=== PATIENT | female | born 1990 | race African-American/Black ===

== ENCOUNTER 2017-01-29 15:16 | Inpatient (IN) | payer OTHER ==
[2017-01-29 16:46] VITALS: BMI 29.4
[2017-01-29] MEDS ORDERED: OXYTOCIN IN NS 167 ML IV PRN (17:06)
[2017-01-29] MEDS: LACTATED RINGERS 1,000 ML IV PRN ×2 (17:10→17:53)
[2017-01-29] MEDS ORDERED: LIDOCAINE Viscous 2% 15 ML UDCUP ONE (17:17)
[2017-01-29] MEDS ORDERED: OXYTOCIN 10 UNITS/ML VIAL ONE (17:17)
[2017-01-29] MEDS ORDERED: LIDOCAINE 1% (PRES FREE) 30 ML VIAL ONE (17:17)
[2017-01-29] MEDS ORDERED: MINERAL OIL 25 ML BOT ONE (17:17)
[2017-01-29] MEDS ORDERED: FENTANYL/ROPIVACAINE EPIDURAL 250 ML EP ONE (17:18)
[2017-01-29] MEDS ORDERED: BUPIVACAINE 0.25% (PRES FREE) 30 ML VIAL ONE (17:28)
[2017-01-29] MEDS ORDERED: EPIDURAL PROCEDURE TRAY ONE (17:28)
[2017-01-29] MEDS ORDERED: LACTATED RINGERS 500 ML IV PRN (17:32)
[2017-01-29] MEDS ORDERED: NALOXONE HCL 0.4 MG/ML VIAL IV PRN (17:32)
[2017-01-29] MEDS ORDERED: DIPHENHYDRAMINE HCL 50 MG/1 ML VIAL IV PRN (17:32)
[2017-01-29] MEDS ORDERED: METOCLOPRAMIDE HCL 5 MG/ML 2ML VIAL IV PRN (17:32)
[2017-01-29] MEDS ORDERED: NALBUPHINE HCL 20 MG/ML AMP IV PRN (17:32)
[2017-01-29] MEDS ORDERED: ONDANSETRON 4 MG/2ML 2 ML VIAL IV PRN (17:32)
[2017-01-29] MEDS ORDERED: SODIUM CHLORIDE 0.9% 500 ML IV PRN (17:32)
[2017-01-29] MEDS ORDERED: EPHEDRINE SULFATE 50 MG/ML 1ML VIAL IV PRN (17:32)
[2017-01-29] MEDS ORDERED: FENTANYL/ROPIVACAINE EPIDURAL 250 ML EP SCH (17:32)
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
[2017-01-29 17:48] LABS: HEMOGLOBIN 12.6 gm/l (12.0-16.0); MEAN CELL VOLUME 85.6 fl (81.0-99.0); MEAN CORPUSCULAR HEMOGLOBIN 28.4 pg (27.0-31.0); MEAN CORPUSCULAR HGB CONC 33.2 g/dl (33.0-37.0); RED CELL DISTRIBUTION WIDTH 12.3 % (11.5-14.5)
[2017-01-29] MEDS ORDERED: MAGNESIUM HYDROXIDE 30 ML UDCUP PO PRN (19:53)
[2017-01-29] MEDS ORDERED: DIPHTH,PERTUSS(ACELL),TET VAC 0.5 ML VIAL IM V ONE (19:53)
[2017-01-29] MEDS ORDERED: CALCIUM CARBONATE 500 MG TAB.CHEW PO PRN (19:53)
[2017-01-29] MEDS ORDERED: LANOLIN 50 APPLIC/7G TUBE TP PRN (19:53)
[2017-01-29] MEDS ORDERED: BENZOCAINE/MENTHOL 60 APPLIC/BOT TP PRN (19:53)
[2017-01-29] MEDS ORDERED: ACETAMINOPHEN 325 MG TABLET PO PRN (19:53)
--- NOTE | 2017-01-29 19:54 | PCMDEL ---
Delivery Note - Labor 1st stage (hr/min):: 1hr 42mins 2nd stage (hr/min):: 10 mins 3rd stage (hr/min):: 7 mins Total (hr/min):: 1hr 52 mins Pushed (hr/min):: 4 mins - Delivery Delivery (Date): 01/29/17 Delivery (Time): 19:00 Gender: Female Presentation: Cephalic Position: OA (to LOBO) Umbilical Cord: 3 Vessel Delayed Cord Clamping:: > 3 min 1 Minute Total: 8 (2 off for color) 5 Minute Total: 9 Placenta:: grossly intactjean EBL:: 50mL Perineum:: intact Suture:: none Anesthesia/Meds:: epidural Length ROM:: 4 hours 0 mins Comments:: Pre-labor ROM at 1500 today for clear fluid with onset of contractions within the hour. Crystal presented to [facility], ruptured, with SVE of 4.5cm/80%/-2. SHe received an epidural for pain management in labor. She was supported by her mother, Ty. FHTs remained Category 1 throught first stage. Crystal was noted to have complete cervical dilation at 1850 after noting bloody show and increased vaginal pressure. Crystal pushed with the next two contractions and delivered a vigorous female infant, OA to LOBO over an intact perineum. Apgars 8 & 9. delivered direct to maternal abdomen and skin to skin initiated. Delayed cord clamping. Cord was cut by the 's grandfather. With small gush of blood, placenta delivered grossly intact, Shultze position. 3 vessel cord. Fundus immediately firm, midline, below the umbilicus. AMTSL initiated after delivery of the placenta. Vaginal vault and perineum inspected and found to be intact. Post delivery count correct. QBL 50mL Mother and in good condition and bonding well. OB on-call notified of patient's desire for BTL in the AM.
[2017-01-29 20:32] LABS: AMPHETAMINES/METHAMPHETAMINES NEGATIVE (NEGATIVE); COCAINE NEGATIVE (NEGATIVE); MARIJUANA NEGATIVE (NEGATIVE); METHADONE NEGATIVE (NEGATIVE); OPIATES NEGATIVE (NEGATIVE); TRICYCLIC ANTIDEPRESSANTS NEGATIVE (NEGATIVE)
[2017-01-29] MEDS: LACTATED RINGERS 1,000 ML IV SCH (21:52)
[2017-01-30] MEDS: IBUPROFEN 800 MG TABLET PO PRN ×3 (02:52→17:08)
[2017-01-30] MEDS: DOCUSATE SODIUM 100 MG CAPSULE PO SCH (09:08)
[2017-01-30] MEDS: HYDROCODONE/ACETAMINOPHEN 5/325MG TABLET PO PRN ×2 (15:01→20:22)
--- NOTE | 2017-01-30 17:40 | PDOC44 ---
- Subjective Day: 1 ( recovery) Reports , Reports Lochia Light, Reports Tolerating Regular Diet - Objective Temp Pulse Resp BP Pulse Ox 98.2 F 90 18 122/74 01/30/17 14:23 01/30/17 14:23 01/30/17 14:23 01/30/17 14:23 Lab Results 01/29/17 17:10 WBC 7.7 RBC 4.44 Hgb 12.6 Hct 38.0 Plt Count 215 Current Medications Generic Name Dose Route Start Last Admin Trade Name Freq PRN Reason Stop Dose Admin Acetaminophen 325 - 650 mg 01/29/17 19:53 Tylenol PO Q4H PRN Pain (Mild) Acetaminophen/Hydrocodone Bitart 1 - 2 tab 01/30/17 14:53 01/30/17 15:01 [place] 5/325 PO 1 tab Q4H PRN Administration Pain Benzocaine/Menthol 1 applic 01/29/17 19:53 Dermoplast TP PRN PRN Patient Comfort Calcium Carbonate/Glycine 500 - 1,000 mg 01/29/17 19:53 Tums PO BID PRN Indigestion Docusate Sodium 100 mg 01/30/17 09:00 01/30/17 09:08 Colace PO 100 mg DAILY REED Administration Emollient Ointment 1 applic 01/29/17 19:53 [id number] TP PRN PRN sore nipples Ibuprofen 800 mg 01/29/17 19:53 01/30/17 17:08 Motrin PO 800 mg Q6H PRN Administration Pain (Mild) Magnesium Hydroxide 30 ml 01/29/17 19:53 Milk Of Magnesia PO BEDTIME PRN Constipation Sodium Chloride 10 ml 01/29/17 19:53 01/29/17 20:30 Normal Saline 10ml Flush IV 10 ml PRN PRN Administration IV Flush Sodium Chloride 10 ml 01/30/17 01:00 01/30/17 04:55 Normal Saline 10ml Flush IV 10 ml Q8HR REED Administration - Physical Exam General: Afebrile Psych/Mental Status: Mood/Affect Appropriate, Judgment/Insight Intact, Bonding Well Neurological: Grossly Intact, Alert, Oriented x 4, Normal Gait, Normal Speech Lungs: Clear to Auscultation Bilaterally Cardiovascular: Regular Rate and Rhythm Breast: Soft, Skin intact, Nipples Intact Fundus: Firm, Midline, Below Umbilicus Genitourinary: Normal Female Genitalia Rectal Exam: Deferred Extremities: Full ROM Skin: Normal Color, Warm, Dry, Intact - Problems:Assessment/Plan (1) (normal spontaneous vaginal delivery) Status: AcuteAssessment/Plan: A: day #1 s/p exclusively BTL tomorrow P: Reviewed normal pain control, recommended schedule of alternating ibuprofen and norco BTL scheduled tomorrow will be NPO at midnight. Disposition: Stable
--- NOTE | 2017-01-30 21:03 | PDOC36 ---
Provider Note Subject: Pre-op note Note: Fco is a 26yo G6 para 1324, who is very definite that she wants to have permanent contraception by tubal ligation. She has been scheduled for tomorrow morning. Pt has 3 boys and now her girl. She signed the federal consent form on 12/06/16. Risks/complications were briefly reviewed with her tonight. She says she would prefer to be asleep for the surgery. Exam: Pt is sitting up, . Her bleeding has been minimal since the . Abd soft, +BS, non tender. no prior abd surgery scars. Fundus is firm, mobile, deep, 2-3cm below umbilicus. Imp: Ppartum BTL tomorrow at 7am Plan: Routine pre-op care.
[2017-01-31] MEDS: LACTATED RINGERS 1,000 ML IV SCH ×4 (00:37→21:10)
[2017-01-31] MEDS: IBUPROFEN 800 MG TABLET PO PRN ×2 (01:02→09:46)
[2017-01-31] MEDS: HYDROCODONE/ACETAMINOPHEN 5/325MG TABLET PO PRN (01:02)
[2017-01-31 06:12] LABS: HEMATOCRIT 32.2 % (37.0-47.0); HEMOGLOBIN 10.4 gm/l (12.0-16.0); MEAN CELL VOLUME 88.7 fl (81.0-99.0); MEAN CORPUSCULAR HEMOGLOBIN 28.7 pg (27.0-31.0); MEAN CORPUSCULAR HGB CONC 32.3 g/dl (33.0-37.0); RED CELL DISTRIBUTION WIDTH 12.3 % (11.5-14.5)
[2017-01-31] MEDS ORDERED: FENTANYL 100 MCG/2 ML VIAL ONE (06:51)
[2017-01-31] MEDS ORDERED: PROPOFOL 20 ML IV ONE (06:51)
[2017-01-31] MEDS ORDERED: MIDAZOLAM HCL 1 MG/ML 2ML VIAL ONE (06:51)
[2017-01-31] MEDS ORDERED: LIDOCAINE 2% (PRES FREE) 5 ML VIAL ONE (06:51)
[2017-01-31] MEDS ORDERED: CITRIC ACID/SODIUM CITRATE 15 ML UDCUP PO ONE (07:12)
[2017-01-31] MEDS ORDERED: FENTANYL 100 MCG/2 ML VIAL IV PRN (07:44)
[2017-01-31] MEDS ORDERED: ATROPINE SULFATE 0.4 MG/1 ML VIAL IV PRN (07:44)
[2017-01-31] MEDS ORDERED: PROMETHAZINE HCL 25 MG/ML VIAL IM PRN (07:44)
[2017-01-31] MEDS ORDERED: NALOXONE HCL 0.4 MG/ML VIAL IV PRN (07:44)
[2017-01-31] MEDS ORDERED: HYDROMORPHONE HCL 1 MG/ML SYRINGE IV PRN (07:44)
[2017-01-31] MEDS ORDERED: ONDANSETRON 4 MG/2ML 2 ML VIAL IV PRN (07:44)
[2017-01-31] MEDS ORDERED: FENTANYL 250 MCG/5 ML AMP ONE (07:51)
[2017-01-31] MEDS ORDERED: DEXAMETHASONE SOD PHOS 4 MG/1 ML VIAL ONE (07:58)
[2017-01-31] MEDS ORDERED: DIPHENHYDRAMINE HCL 50 MG/1 ML VIAL ONE (07:58)
[2017-01-31] MEDS ORDERED: KETOROLAC TROMETHAMINE 30 MG/ML 1 ML VIAL ONE (07:59)
--- NOTE | 2017-01-31 08:20 | PCMBPN ---
Brief Post Op Note: Date of Procedure: 01/31/17 Start Time: Preoperative Diagnosis: 1. multiparity Postoperative Diagnosis: 1. multiparity Procedure: post tubal ligation by [place] technique Surgeon: Jeremy Jo Assist:ms. aura tee Anesthesia: mr rich, spinal/general Findings: uterine fundus at 20 weeks size, both fallopian tubes normal Condition: stable Complications: none IV Fluids: mLs of LR Urine Output: mLs Estimated Blood Loss: less than 5 mLs Tourniquet Time: N/A Specimens: portion of right and left fallopian tubes Implants: Drains: N/A closure nina patient tolerated procedure well and was returned to recovery room in stable condition.
[2017-01-31] MEDS ORDERED: DOCUSATE SODIUM 100 MG CAPSULE PO PRN (08:21)
[2017-01-31] MEDS ORDERED: MENTHOL/CETYLPYRD 1 EACH LOZENGE PO PRN (08:21)
[2017-01-31] MEDS ORDERED: MAG HYDROX/AL HYDROX/SIMETH 30 ML UDCUP PO PRN (08:21)
[2017-01-31] MEDS ORDERED: BLISTEX LIPSTICK 1 EACH TP PRN (08:21)
[2017-01-31] MEDS ORDERED: MAGNESIUM HYDROXIDE/AL HYDROX 30 ML UDCUP PO PRN (08:21)
[2017-01-31] MEDS ORDERED: ACETAMINOPHEN 325 MG TABLET PO PRN (08:21)
[2017-01-31] MEDS: OXYCODONE/ACETAMINOPHEN 5/325 MG TABLET PO PRN ×3 (09:46→20:12)
--- NOTE | 2017-01-31 11:22 | OP ---
Fco Solomon : 1990 NAME OF OPERATION: tubal ligation by Ros[place] technique. PREOPERATIVE DIAGNOSIS: Multiparity. POSTOPERATIVE DIAGNOSIS: Multiparity. ROASTER HELPER: Dr. Jeremy Renae. BUSINESS SERVICES MANAGER: Ms. Mariama Ely. ANESTHESIA: Mr. Kitchen, Spinal which was not successful followed by general anesthesia. DESCRIPTION OF PROCEDURE: Dictation begins with patient in the supine position. The abdomen had been prepared with Chloraprep and draped in the usual manner for subumbilical incision. After a timeout was performed the skin was tested, but patient did feel pain and for this reason the spinal anesthesia was converted to general anesthesia. Under general anesthesia two Allis clamps were used to grasp the skin lateral to the umbilicus and a subumbilical incision was made with the knife. The knife was then used to dissect down the subcutaneous tissue to the rectus abdominis fascia which was nicked with the knife and carried laterally with Metzenbaum scissors. The peritoneum was then identified, grasped with Allis clamps, and dissected using the knife. Findings included the uterine fundus 20 weeks size and both Fallopian tubes appeared normal. First the right Fallopian tube was identified down to its fimbriated portion grasping it in the mid portion with a Harts clamp and the skin had been retracted with narrow retractors. With the right Fallopian tube identified down to its fimbriated portion a suture of 3-0 Plain was placed through the mesosalpinx and around the tube creating a knuckle of tube and then held with a Barby clamp. A free tie of the same material was placed beneath the first and then the knuckle of tube was dissected away. The edges were bovied resulting in complete hemostasis. The same procedure was performed on the opposite tube making sure to identify down to its fimbriated portion. This tube after ligation was cauterized resulting in complete hemostasis. Now with complete hemostasis all the instruments were removed and with sponge and instrument count reported as correct and complete hemostasis two Allis clamps were used to grasp the peritoneum and rectus abdominis fascia together in a continuous suture of 0 Vicryl was used to close the fascia and the peritoneum in a continuous manner locking the first stitch. Subcutaneous bleeding points were bovied prior to closure of skin and the skin was closed with nina. Estimated blood loss was less than 5 mL and patient tolerated procedure well and was returned to recovery room in stable condition. Again sponge and instrument count was reported as correct at closure. FINAL DIAGNOSIS: Multiparity. JOB:
--- NOTE | 2017-01-31 17:37 | PDOC44 ---
- Subjective Reports Pain Tolerable, Reports - Objective Temp Pulse Resp BP Pulse Ox 97.8 F 88 16 138/103 97 01/31/17 14:37 01/31/17 14:37 01/31/17 14:37 01/31/17 14:37 01/31/17 14:37 Lab Results 01/31/17 05:30 WBC 7.8 RBC 3.63 L Hgb 10.4 L D Hct 32.2 L Plt Count 174 01/31/17 05:30 MCHC 32.3 L Current Medications Generic Name Dose Route Start Last Admin Trade Name Freq PRN Reason Stop Dose Admin Acetaminophen 325 - 650 mg 01/29/17 19:53 Tylenol PO Q4H PRN Pain (Mild) Acetaminophen 325 - 650 mg 01/31/17 08:21 Tylenol PO Q4H PRN Pain or Temperature > 100.5 F Acetaminophen/Hydrocodone Bitart 1 - 2 tab 01/30/17 14:53 01/31/17 01:02 [place] 5/325 PO 2 tab Q4H PRN Administration Pain Al Hydroxide/Mg Hydroxide 30 ml 01/31/17 08:21 Maalox Plus PO Q4H PRN Bloating,Gas,Abd Distension Al Hydroxide/Mg Hydroxide 30 ml 01/31/17 08:21 Maalox PO Q4H PRN Dyspepsia Atropine Sulfate 0.2 mg 01/31/17 07:44 Atropine Sulfate IV X1 PRN HR <50/minute and unstable BP Benzocaine/Menthol 1 applic 01/29/17 19:53 Dermoplast TP PRN PRN Patient Comfort Benzocaine/Menthol 1 each 01/31/17 08:21 Cepacol PO PRN PRN Cough Calcium Carbonate/Glycine 500 - 1,000 mg 01/29/17 19:53 Tums PO BID PRN Indigestion Docusate Sodium 100 mg 01/30/17 09:00 01/30/17 09:08 Colace PO 100 mg DAILY REED Administration Docusate Sodium 100 mg 01/31/17 08:21 Colace PO BID PRN Constipation Emollient Ointment 1 applic 01/29/17 19:53 [id number] TP PRN PRN sore nipples Fentanyl Citrate 50 mcg 01/31/17 07:44 Fentanyl IV Q5M PRN Pain Hydromorphone HCl 0.5 mg 01/31/17 07:44 01/31/17 13:12 Dilaudid IV 0.5 mg Q5M PRN Administration Pain Lactated Ringer's 1,000 mls @ 100 mls/hr 01/31/17 07:45 Lactated Ringers IV .Q10H REED Ibuprofen 800 mg 01/29/17 19:53 01/31/17 09:46 Motrin PO 800 mg Q6H PRN Administration Pain (Mild) Magnesium Hydroxide 30 ml 01/29/17 19:53 Milk Of Magnesia PO BEDTIME PRN Constipation Naloxone HCl 0.2 mg 01/31/17 07:44 Narcan IV X1 PRN Respiratory Rate <8/minute Ondansetron HCl 4 mg 01/31/17 07:44 Zofran IV X1 PRN Nausea/Vomiting Oxycodone/Acetaminophen 1 - 2 tab 01/31/17 08:21 01/31/17 14:35 Percocet 5/325 PO 2 tab Q4H PRN Administration Pain Petrolatum/Paraffin/Mineral Oil 1 each 01/31/17 08:21 Blistex TP PRN PRN Dry and/or chapped lips Promethazine HCl 12.5 - 25 mg 01/31/17 07:44 Phenergan IM X1 PRN Nausea/Vomiting Sodium Chloride 10 ml 01/29/17 19:53 01/31/17 06:20 Normal Saline 10ml Flush IV 10 ml PRN PRN Administration IV Flush Sodium Chloride 10 ml 01/30/17 01:00 01/31/17 00:36 Normal Saline 10ml Flush IV 10 ml Q8HR [facility] Administration - Physical Exam General: Afebrile Psych/Mental Status: Mood/Affect Appropriate, Bonding Well Breast: Soft, Skin intact, Nipples Intact Fundus: Firm, Midline, Below Umbilicus Genitourinary: Normal Female Genitalia Rectal Exam: Deferred Skin: Normal Color, Warm, Dry Wound PROGRAM COUNSELOR: Dressing in Place, Dressing Clean/Dry/Intact - Problems:Assessment/Plan (1) care and examination of lactating mother Status: Acute (2) tubal ligation planned Status: Acute Disposition: Stable, Anticipate DC Home Tomorrow
[2017-01-31] MEDS: DOCUSATE SODIUM 100 MG CAPSULE PO SCH (21:08)
[2017-02-01] MEDS: IBUPROFEN 800 MG TABLET PO PRN ×2 (01:18→09:47)
[2017-02-01] MEDS: LACTATED RINGERS 1,000 ML IV SCH ×3 (04:50→08:53)
[2017-02-01 06:03] LABS: HEMATOCRIT 30.8 % (37.0-47.0); HEMOGLOBIN 10.1 gm/l (12.0-16.0)
--- NOTE | 2017-02-01 07:37 | PDOC36 ---
Provider Note Subject: postop BTL Note: No c/o this AM. Abdomen: soft, nontender, nondistended Incision: clean, dry, intact. dressing removed. nina are noted, well approximated. a/p) OK for discharge today f/u 1w with Dr. Jo for nina removal rx percocet Vital Signs - 24 hr 01/31/17 01/31/17 01/31/17 09:15 09:45 10:15 Temperature 97.9 F Pulse Rate 79 81 78 Respiratory 16 16 16 Rate Blood Pressure 138/97 146/102 136/92 O2 Saturation 98 98 98 by Pulse Oximetry 01/31/17 01/31/17 01/31/17 10:45 14:37 18:25 Temperature 98.8 F 97.8 F 98.1 F Pulse Rate 86 88 105 Respiratory 16 16 18 Rate Blood Pressure 132/98 138/103 139/81 O2 Saturation 98 97 by Pulse Oximetry 01/31/17 02/01/17 21:45 02:35 Temperature 98.8 F 99.7 F Pulse Rate 77 75 Respiratory 16 16 Rate Blood Pressure 137/98 133/89 O2 Saturation by Pulse Oximetry Laboratory WBC 7.8 K/mm3 (4.0-10.5) 01/31/17 05:30 RBC 3.63 M/mm3 (4.20-5.40) L 01/31/17 05:30 Hgb 10.1 gm/l (12.0-16.0) L 02/01/17 05:30 Hct 30.8 % (37.0-47.0) L 02/01/17 05:30 MCV 88.7 fl (81.0-99.0) 01/31/17 05:30 MCH 28.7 pg (27.0-31.0) 01/31/17 05:30 MCHC 32.3 g/dl (33.0-37.0) L 01/31/17 05:30 RDW 12.3 % (11.5-14.5) 01/31/17 05:30 Plt Count 174 K/mm3 (130-400) 01/31/17 05:30 Urine Opiates Screen Negative (NEGATIVE) 01/29/17 18:20 Urine Methadone Screen Negative (NEGATIVE) 01/29/17 18:20 Ur Barbiturates Screen Negative (NEGATIVE) 01/29/17 18:20 Ur Tricyclics Screen Negative (NEGATIVE) 01/29/17 18:20 U Amphetamin/Meth Scrn Negative (NEGATIVE) 01/29/17 18:20 U Benzodiazepines Scrn Negative (NEGATIVE) 01/29/17 18:20 Urine Cocaine Negative (NEGATIVE) 01/29/17 18:20 U Marijuana (THC) Screen Negative (NEGATIVE) 01/29/17 18:20 Syphilis IgG/IgM Ab Non-reactive (()) 01/29/17 17:00
[2017-02-01 08:45] VITALS: BP 137/93
[2017-02-01] MEDS: DOCUSATE SODIUM 100 MG CAPSULE PO SCH (09:46)
[2017-02-01 10:20] LABS: HEMATOCRIT 30.9 % (37.0-47.0); HEMOGLOBIN 9.9 gm/l (12.0-16.0); MEAN CELL VOLUME 88.3 fl (81.0-99.0); MEAN CORPUSCULAR HEMOGLOBIN 28.3 pg (27.0-31.0); RED CELL DISTRIBUTION WIDTH 12.3 % (11.5-14.5)
[2017-02-01 10:23] LABS: ALB/GLOB RATIO 0.9 (>1.0); CALCIUM 8.6 mg/dL (8.6-10.3)
--- NOTE | 2017-02-01 11:51 | PDOC39B ---
Hospital Course: ADMIT DATE: 01/29/17 DISCHARGE DATE: 02/01/17 ADMISSION DIAGNOSES: Uterine contractions PROCEDURES: & BTL HISTORY OF PRESENT ILLNESS: 26 year old G6 T0 L3 at 38 weeks 5 days presenting with uterine contractions. of baby girl. Had a BTL. Elevated BPs . HOSPITAL COURSE: By day of discharge the patient is ambulating, eating, voiding , and passing flatus without difficulty. Pain is controlled and lochia is appropriate. She is without difficulty. She denies s/s preeclampsia (RABAGO, visual changes, edema, RUQ pain). She has good social support from her mother. She requests a breastpump. She also reports an ongoing foot infection x1mo on both feet. She has been washing them at home with hydrogen peroxide and at the hospital with alcohol swabs. - Physical Exam Vital Signs: Temp Pulse Resp BP Pulse Ox 98.9 F 80 18 137/93 97 02/01/17 08:44 02/01/17 08:44 02/01/17 08:44 02/01/17 08:44 01/31/17 14:37 General: Afebrile Psych/Mental Status: Mood/Affect Appropriate, Judgment/Insight Intact, Bonding Well Lungs: Clear to Auscultation Bilaterally Cardiovascular: Regular Rate and Rhythm Breast: Soft, Skin intact, Nipples Intact Fundus: Firm, Midline, Below Umbilicus Genitourinary: Normal Female Genitalia Lochia: Light Extremities: Full ROM Skin: Other (Left foot-tinea pedis on underside of 3 smaller toes. Right foot- tinea pedis on underside of 2 smaller toes. Skin is cracked, no bleeding, appears wet. Pt has both covered with gauze. Gauze has some yellow exudate.) Wound: Dressing in Place (From BTL-not examined, as MD already examined pt this morning) - Discharge Diagnosis (1) care and examination of lactating mother Status: AcuteAssessment/Plan: A: Day 3 without difficulty Lochia stable Tinea pedis (see separate note) Elevated BPs -labs pending S/p BTL P: Education: handout given and reviewed. Warning signs and when to call/seek care discussed. Rx: breast pump, ibuprofen, colace given : encourage on-demand feeds, follow baby's feeding cues, relatch when baby is on shallow Social: has good support from family Contraception: BTL Follow-up: 1 week with OB for staple removal and CNMs in 2 weeks for routine PP visit (2) Tinea pedis Status: AcuteAssessment/Plan: A: Tinea pedis on both feet No signs of significant infection P: Rx for topcial clotrimazole given Instructions for foot care given in discharge instructions Pt to call if infection gets worse Encouraged to keep skin open to room air Will follow-up at 2-wk visit for healing progress and refer to primary care as needed (3) Elevated blood pressure reading Status: AcuteAssessment/Plan: A: Multiple elevated BPs , all <160/110 Asymptomatic for PIH PIH labs pending P: Reviewed PIH warning signs to call with (RABAGO, visual changes, edema, RUQ pain) Labs ordered and pending Will follow-up on BP at 1-week BTL visit and at routine visits. - Discharge Plan Condition: Stable Disposition: Home Additional Instructions: Congratulations on the of your baby! You have a 1-week post-tubal ligation visit with Dr. Jo on 02/08/17 at 2pm in [place]. You have a 2- week follow-up visit with the midwives on 02/12/17 at 2:40pm in [place]. If you have any questions or concerns, or if you need to reschedule, please call the clinic at [phone]. Call the clinic if you experience severe headache, new blurry vision or visual changes, sudden swelling, or pain under your ribs. For your foot infection (from UpToDate): Here are some other general tips on how to prevent fungal infections: -Do not share unwashed clothes, sports gear, or towels with other people -Always wear slippers or sandals when at the gym, pool, or other public areas. That includes public showers. -Wash with soap and shampoo after sports or exercise -Change your socks and underwear at least once a day -Keep your skin clean and dry. Always dry yourself well after swimming or showering. To improve comfort and reduce the chances of repeat infection, it is a good idea to use antifungal foot powders, both on the feet and in the shoes, and to wear open shoes when feasible, at least while the feet heal. Midwifery 'After the ' handout given to patient. Prescriptions: Docusate Sodium [COLACE 100 MG CAPSULE (F)] 100 mg PO DAILY PRN #14 cap PRN Reason: Constipation Ibuprofen [Motrin] 1 tab PO Q6H PRN #30 tablet PRN Reason: Pain Clotrimazole 1% Top Cream [LOTRIMIN 1% CREAM ([facility])] 1 applic TP BID #1 tube Oxycodone HCl/Acetaminophen [PERCOCET 5/325 MG TABLET ([facility])] 1 - 2 tab PO Q4H PRN #10 tab PRN Reason: Pain Follow-Up: Jeremy Jo MD [Staff Physician] - In 7-10 days (for nina removal)
[2017-02-01 13:03] LABS: CREATININE,RANDOM URINE 31 mg/dL
--- NOTE | 2017-02-07 14:20 | SURGPATH ---
[facility] [address] [place] [id number] Patient Name: SKYLAR RAMOS I. MR#: [id number] : 1990 Gender: F Specimen #: [id number] Collected: 01/31/2017 Received: 02/01/2017 Reported: 02/04/2017 Submitting Phys: JASON ROWAN I Copy To Phys: RONAL MARTINEZ [facility] Clinical History / Pre-Operative Diagnosis: DESIRE FOR STERILIZATION Specimen Source / Surgical Procedure Performed: BILATERAL FALLOPIAN TUBE SEGMENTS (STITCH ON RIGHT) Interpretation: FALLOPIAN TUBES, RIGHT AND LEFT, TUBAL LIGATION: - COMPLETE CROSS SECTIONS OF RIGHT AND LEFT FALLOPIAN TUBES Electronically Signed Out Ana Dubois M.D. Gross Description: The specimen is received in a formalin filled container labeled with the patient's name and "bilateral fallopian tube segments". Two cylindrical segments of woods tissue are 1.0 x 0.5 cm and 2.0 x 0.5 cm. The shorter segment has an attached suture and is inked black. A sales representative door to door cross section of each is submitted in one cassette. Sigifredo Novoa PSharon Microscopic Description: Complete cross-sections of inked and uninked fallopian tubes are seen, without significant pathologic changes. 1: [id number] Z30.2
== END 2017-02-01 13:20 | disposition home or self-care (01) | DRG 767 ==
LOC: FBC 16:04 → EEVIPCON 16:04 → FBC 01-30 23:24
PROVIDERS: ADMIT Advanced Practice Midwife; ATTEND Obstetrics & Gynecology
PROC: 10E0XZZ Delivery of Products of Conception, External Approach (ICD-10-PCS; principal; 2017-01-29)
PROC: 0UL70ZZ Occlusion of Bilateral Fallopian Tubes, Open Approach (ICD-10-PCS; 2017-01-30)
DX: O62.3 Precipitate labor (principal); O09.43 Supervision of pregnancy with grand multiparity, third trimester; Z3A.39 39 weeks gestation of pregnancy; Z37.0 Single live birth; Z30.2 Encounter for sterilization